=== PATIENT | female | born 1955 ===

== ENCOUNTER 2024-02-18 09:00 | Outpatient (RCR) | payer MEDICARE, BC | END 2024-03-11 11:06 | LOC: OPPGERO 09:00 | DX: F43.23 Adjustment disorder with mixed anxiety and depressed mood (principal); F43.10 Post-traumatic stress disorder, unspecified ==

== ENCOUNTER 2024-04-29 08:47 | Outpatient (RCR) | payer MEDICARE, BC | END 2024-05-16 12:44 | disposition home or self-care (01) | LOC: OPPGERO 08:47 | DX: F41.1 Generalized anxiety disorder (principal); F43.10 Post-traumatic stress disorder, unspecified | CPT/HCPCS: C7903; G0410 ==

== ENCOUNTER 2024-07-22 13:10 | Outpatient (RCR) | payer MEDICARE, BC | END 2024-08-18 15:23 | LOC: OPPGERO 13:10 | DX: Z01.89 Encounter for other specified special examinations (principal) ==

== ENCOUNTER 2024-08-18 15:33 | Outpatient (RCR) | payer MEDICARE, BC | END 2024-09-18 16:37 | LOC: OPPGERO 15:33 | DX: Z01.89 Encounter for other specified special examinations (principal) ==

== ENCOUNTER 2024-09-19 11:09 | Outpatient (RCR) | payer MEDICARE, BC | END 2024-10-17 13:06 | LOC: OPPGERO 11:09 | DX: F41.1 Generalized anxiety disorder (principal); F43.10 Post-traumatic stress disorder, unspecified; M25.562 Pain in left knee; Z79.899 Other long term (current) drug therapy ==

== ENCOUNTER 2024-10-20 12:22 | Outpatient (RCR) | payer MEDICARE, BC | END 2024-11-14 19:37 | disposition home or self-care (01) | LOC: OPPGERO 12:22 | DX: F41.1 Generalized anxiety disorder (principal); F43.10 Post-traumatic stress disorder, unspecified ==